=== PATIENT | female | born 1995 | race Caucasian/White ===

== ENCOUNTER 2020-02-25 02:58 | Emergency (ER) | payer OTHER, MEDICAID ==
[~2020-02-25] VITALS: Ht 165.1 cm; Wt 93.0 kg
[2020-02-25 03:38] LABS: BASO % 0.4 % (0.0-1.0); EOS # 0.2 10*3/uL (0.0-0.4); EOS % 2.7 % (1.0-4.0); HEMATOCRIT 41.4 % (37.0-47.0); LYMPH # 2.4 10*3/uL (1.3-4.4); LYMPH % 32.4 % (27.0-41.0); MEAN CELL VOLUME 89.4 fl (81.0-99.0); MEAN CORPUSCULAR HGB CONC 33.6 g/dl (33.0-37.0); MEAN PLATELET VOLUME 10.3 fl (9.6-12.3); MONO # 0.6 10*3/uL (0.1-1.0); MONO % 8.2 % (3.0-9.0); NEUT # 4.2 10*3/uL (2.3-7.9); PLATELET COUNT AUTOMATED 207 10*3/uL (130-400); RED BLOOD COUNT 4.63 10*6/uL (4.10-5.10); RED CELL DISTRI WIDTH 12.3 % (0-14.5); WHITE BLOOD COUNT 7.4 10*3/uL (4.8-10.8)
[2020-02-25 03:52] LABS: ALBUMIN 3.6 gm/dl (3.1-4.5); ALKALINE PHOSPHATASE 101 U/L (45-117); BUN 12 mg/dl (7-24); CHLORIDE 108 mmol/L (98-107); CREATININE 0.74 mg/dL (0.55-1.02); LIPASE 79 U/L (73-393); POTASSIUM 3.7 mmol/L (3.5-5.1); SGOT/AST 20 IU/L (3-35); SGPT/ALT 27 U/L (12-78); SODIUM 140 mmol/L (136-145); TOTAL PROTEIN 7.4 gm/dL (6.4-8.2)
[2020-02-25 03:57] LABS: BILIRUBIN NEGATIVE (NEGATIVE); BLOOD NEGATIVE (NEGATIVE); CLARITY SL CLOUDY (CLEAR); COLOR YELLOW (YELLOW); GLUCOSE NEGATIVE (NEGATIVE); KETONE NEGATIVE (NEGATIVE)
[2020-02-25 03:58] LABS: LEUKO ESTERASE NEGATIVE (NEGATIVE); NITRITE NEGATIVE (NEGATIVE); UROBILINOGEN 0.2 E.U./dl (0.2-1.0)
[2020-02-25 04:05] LABS: BACTERIA 2+; EPITHELIAL CELLS 21-30
[2020-02-25 04:06] LABS: WBC 0-2 wbc/hpf (0-5)
[2020-02-25] MEDS ORDERED: MACROBID100 M1 PO (05:42)
== END 2020-02-25 06:39 | disposition home or self-care (01) ==
LOC: ED 02:58
PROVIDERS: Emergency Medicine Emergency Medical Services
DX: F44.5 Conversion disorder with seizures or convulsions (principal); R82.71 Bacteriuria; F17.200 Nicotine dependence, unspecified, uncomplicated

== ENCOUNTER 2021-07-07 12:36 | Emergency (ER) | payer OTHER ==
[~2021-07-07] VITALS: Ht 172.7 cm; Wt 104.8 kg
[~2021-07-07 12:36] MED LIST: MACROBID100 M1 PO
[2021-07-07 13:23] LABS: BASO % 0.5 % (0.0-1.0); EOS # 0.1 10*3/uL (0.0-0.4); EOS % 1.2 % (1.0-4.0); HEMATOCRIT 37.3 % (37.0-47.0); LYMPH # 1.6 10*3/uL (1.3-4.4); LYMPH % 24.4 % (27.0-41.0); MEAN CORPUSCULAR HGB 30.5 pg (27.0-31.0); MEAN CORPUSCULAR HGB CONC 34.3 g/dl (33.0-37.0); MEAN PLATELET VOLUME 10.2 fl (9.6-12.3); MONO # 0.5 10*3/uL (0.1-1.0); MONO % 8.3 % (3.0-9.0); NEUT # 4.2 10*3/uL (2.3-7.9); NEUT % 65.4 % (47.0-73.0); PLATELET COUNT AUTOMATED 207 10*3/uL (130-400); RED BLOOD COUNT 4.19 10*6/uL (4.10-5.10); RED CELL DISTRI WIDTH 12.5 % (0-14.5); WHITE BLOOD COUNT 6.5 10*3/uL (4.8-10.8)
[2021-07-07 13:40] LABS: ALBUMIN 3.6 gm/dl (3.1-4.5); ALKALINE PHOSPHATASE 90 U/L (45-117); BUN 11 mg/dl (7-24); CHLORIDE 109 mmol/L (98-107); CREATININE 0.76 mg/dL (0.55-1.02); POTASSIUM 3.7 mmol/L (3.5-5.1); SGOT/AST 15 IU/L (3-35); SGPT/ALT 25 U/L (12-78); SODIUM 141 mmol/L (136-145)
== END 2021-07-07 13:59 | disposition left against medical advice (07) ==
LOC: ED 12:36
PROVIDERS: Emergency Medicine
DX: G40.909 Epilepsy, unspecified, not intractable, without status epilepticus (principal); Z79.2 Long term (current) use of antibiotics

== ENCOUNTER 2024-02-20 22:43 | Emergency (ER) | payer OTHER ==
[~2024-02-20] VITALS: Ht 162.5 cm; Wt 70.3 kg
[2024-02-20] MEDS ORDERED: Ondansetron Hydrochloride 4 MG TAB SL ONE (23:10)
[2024-02-20 23:26] LABS: BASO % 0.4 % (0.0-1.0); EOS # 0.1 10*3/uL (0.0-0.4); EOS % 1.1 % (1.0-4.0); HEMATOCRIT 43.9 % (37.0-47.0); LYMPH % 27.9 % (27.0-41.0); MEAN CORPUSCULAR HGB 30.7 pg (27.0-31.0); MEAN PLATELET VOLUME 9.9 fl (9.6-12.3); MONO # 0.5 10*3/uL (0.1-1.0); NEUT # 4.6 10*3/uL (2.3-7.9); NEUT % 63.3 % (47.0-73.0); PLATELET COUNT AUTOMATED 246 10*3/uL (130-400); RED BLOOD COUNT 4.72 10*6/uL (4.10-5.10); RED CELL DISTRI WIDTH 12.1 % (0-14.5); WHITE BLOOD COUNT 7.3 10*3/uL (4.8-10.8)
[2024-02-20 23:48] LABS: ALKALINE PHOSPHATASE 82 U/L (46-116); BUN 14 mg/dl (9-23); CHLORIDE 108 mmol/L (98-107); LIPASE 47 U/L (12-53); POTASSIUM 3.9 mmol/L (3.4-5.1); SGPT/ALT 14 U/L (5-49); TOTAL PROTEIN 7.2 gm/dL (6.0-8.0)
[2024-02-21 01:49] LABS: BILIRUBIN Negative (Negative); BLOOD Negative (Negative); CLARITY Turbid (Clear); COLOR Yellow (Yellow); GLUCOSE Negative (Negative); KETONE Negative (Negative); LEUKO ESTERASE Trace (Negative); NITRITE Negative (Negative); PH 7.5 (4.5-8.0)
[2024-02-21 02:17] LABS: BACTERIA TRACE; EPITHELIAL CELLS TNTC
[2024-02-21] MEDS ORDERED: Ketorolac Tromethamine 60 MG/2 ML VIAL IM ONE (02:20)
== END 2024-02-21 03:17 | disposition home or self-care (01) ==
LOC: ED 22:43
PROVIDERS: Internal Medicine
DX: R10.30 Lower abdominal pain, unspecified (principal); R11.0 Nausea; Z91.040 Latex allergy status; Z98.890 Other specified postprocedural states

== ENCOUNTER 2025-09-24 12:17 | Emergency (ER) | payer OTHER ==
[~2025-09-24] VITALS: Wt 92.1 kg
[2025-09-24] MEDS ORDERED: LAMOTRIGINE200 MG PO (12:30)
[2025-09-24 12:51] LABS: BASO # 0.0 10*3/uL (0.0-0.1); BASO % 0.5 % (0.0-1.0); EOS # 0.0 10*3/uL (0.0-0.4); EOS % 0.7 % (1.0-4.0); MEAN CELL VOLUME 89.7 fl (81.0-99.0); MEAN CORPUSCULAR HGB 30.2 pg (27.0-31.0); MEAN PLATELET VOLUME 10.2 fl (9.6-12.3); MONO # 0.4 10*3/uL (0.1-1.0); MONO % 5.9 % (3.0-9.0); NEUT # 3.7 10*3/uL (2.3-7.9); NEUT % 60.7 % (47.0-73.0); NUCLEATED RED BLOOD CELL 0.0 % (0.0-0.0); NUCLEATED RED BLOOD CELL 0.0 10*3/uL (0.0-0.0); PLATELET COUNT AUTOMATED 189 10*3/uL (130-400); RED CELL DISTRI WIDTH 11.9 % (0-14.5)
[2025-09-24 13:12] LABS: BUN 11 mg/dl (9-23); SGPT/ALT 12 U/L (5-49)
[2025-09-24] MEDS ORDERED: CLOBAZAM10 MG PO (13:19)
[2025-09-24] MEDS ORDERED: NATURE'S BLEND F1 MG PO (14:35)
[2025-09-24] MEDS ORDERED: ROPINIROLE HYD0.5 MG PO (14:37)
[2025-09-24] MEDS ORDERED: SERTRALINE HCL150 MG PO (14:37)
[2025-09-24] MEDS ORDERED: BACLOFEN5 MG PO (14:39)
[2025-09-24 14:50] LABS: BILIRUBIN Negative (Negative); BLOOD Negative (Negative); CLARITY Clear (Clear); COLOR Yellow (Yellow); KETONE Negative (Negative); LEUKO ESTERASE Negative (Negative); NITRITE Negative (Negative); PH 8.0 (4.5-8.0); SPECIFIC GRAVITY 1.020 (1.001-1.030); UROBILINOGEN 1.0 E.U./dl (0.0-1.0)
[2025-09-24 14:53] LABS: URINE AMPHETAMINES Negative (1000ng/ml); URINE BARBITURATES Negative (200ng/ml); URINE BENZODIAZEPINES Positive (200ng/ml); URINE CANNABINOIDS (THC) Negative (50ng/ml); URINE COCAINE Negative (300ng/ml); URINE METHADONE Negative (300ng/ml); URINE OPIATES Negative (300ng/ml); URINE PHENCYCLIDINE Negative (25ng/ml)
[2025-09-24 15:23] LABS: BACTERIA 2+; MUCOUS 1+; RBC 0-2 rbc/hpf (0-2); WBC 0-2 wbc/hpf (0-5)
== END 2025-09-24 15:53 | disposition home or self-care (01) ==
LOC: ED 12:17
PROVIDERS: Emergency Medicine
DX: R29.818 Other symptoms and signs involving the nervous system (principal); Z98.890 Other specified postprocedural states; Z79.899 Other long term (current) drug therapy